=== PATIENT | female | born 1965 | race Caucasian/White ===

== ENCOUNTER 2016-11-16 11:14 | Emergency (ER) | payer MEDICAID ==
[~2016-11-16] VITALS: Ht 167.6 cm; Wt 81.6 kg
[~2016-11-16 11:14] MED LIST: ACETAMINOPHEN-1 EAC1 ORAL; BACTRIM DS TAB1 EAC1 ORAL; IBUPROFEN600 MG ORAL; LISINOPRIL20 MG ORAL; MS CONTIN30 MG ORAL; NORCO 10-325 T1 EACH ORAL; NORCO 10/3251 EA ORAL; NORCO 5-325 TA1 EACH ORAL; PRILOSEC20 MG ORAL; VALIUM10 MG ORAL
[2016-11-16] MEDS ORDERED: DOXYCYCLINE MO100 MG ORAL (11:41)
[2016-11-16] MEDS ORDERED: Bacitracin Oint UD TOPIC ONE (11:45)
[2016-11-16 12:06] VITALS: BP 178/112
--- NOTE | 2016-11-16 14:26 | Emergency Room Report ---
History of Present Illness General Chief Complaint: Skin Rash/Abscess Source: Patient, Medical Record Present Illness HPI Patient is a 51-year-old female presented after increased rash to the left side of her face. Patient gradual onset of symptoms. The patient stated that she had a moderate pain to the left side of her face. This had began after using a hair dye. Patient stated that she had small lesion which she was subsequently putting [id number] antibiotic cream. Patient denies any fever. She reports having a mild headache. She denied any neck stiffness. The patient prior history of opiate dependence Allergies: Coded Allergies: LEVOFLOXACIN (Verified Allergy, Severe, facial swelling, 10/17/13) PENICILLINS (Verified Allergy, Severe, facial swelling, 10/17/13) VANCOMYCIN (Verified Allergy, Intermediate, hives, 10/17/13) Patient History Past Medical History: see triage record Last Menstrual Period: 06/2016 Now: No : 2 Para: 1 Reviewed Nursing Documentation: PMH: Agreed, PSxH: Agreed Nursing Documentation-PMH Hx Hypertension: Yes Hx Cancer: Yes - SKIN CANCER Hx Neurological Problems: Yes - ANX PROBLEM WITH RIGHT FOOT ; CARE BEEN GIVEN Review of Systems All Other Systems: negative except mentioned in HPI Physical Exam Vital Signs Date Time Temp Pulse Resp B/P Pulse Ox O2 Delivery O2 Flow Rate FiO2 11/16/16 11:22 99.1 92 16 188/133 97 Room Air Sp02 EP Interpretation: reviewed, normal General Appearance: normal inspection, well appearing, no apparent distress, alert, GCS 15 Head: atraumatic ENT: normal ENT inspection, hearing grossly normal, normal voice Neck: normal inspection, full range of motion, supple, no bony tend Respiratory: normal inspection, lungs clear, normal breath sounds, no respiratory distress, no retraction, no wheezing Cardiovascular #1: regular rate, rhythm, no edema Gastrointestinal: normal inspection, normal bowel sounds, non tender, soft, no guarding, no hernia Genitourinary: no CVA tenderness Musculoskeletal: normal inspection, back normal, normal range of motion Neurologic: normal inspection, alert, oriented x3, responsive, business continuity planner III-XII nml as tested, speech normal Psychiatric: normal inspection, judgement/insight normal, mood/affect normal Skin: normal inspection, normal color, other - small patch to left side of face less than 1 cm Medical Decision Making Diagnostic Impression: Primary Impression: Skin infection ER Course Patient presented for skin infection. The differential diagnosis included was not limited to cellulitis, abscess, contact dermatitis, among others. Patient' s benign exam and does not appear to require any further imaging or laboratory testing at this time. The patient was given topical bacitracin. Patient given prescription for doxycycline. The patient's wound appears to be minimally infected. The patient is advised of wound rechecked in 2 days. Patient is to return for worsening headache fever or concerns. Last Vital Signs Date Time Temp Pulse Resp B/P Pulse Ox O2 Delivery O2 Flow Rate FiO2 11/16/16 12:06 86 19 178/112 99 Room Air 11/16/16 11:22 99.1 Status: improved Disposition: HOME, SELF-CARE Condition: Stable Scripts Doxycycline Monohydrate* (DOXYCYCLINE MONOHYDRATE*) 100 Mg Capsule 100 MG ORAL Q12H, #14 CAP 0 Refills Prov: Jay Mejia 11/16/16 Referrals: NOT CHOSEN IPA/MD,REFERRING Patient Instructions: Cellulitis, Contact Precautions Jay Mejia Nov 16, 2016 14:26
== END 2016-11-16 12:06 | disposition home or self-care (01) ==
LOC: EMR 11:57
DX: L08.9 Local infection of the skin and subcutaneous tissue, unspecified (principal); I10 Essential (primary) hypertension; Z85.828 Personal history of other malignant neoplasm of skin; Z88.1 Allergy status to other antibiotic agents; Z88.0 Allergy status to penicillin
CPT/HCPCS: 99283